=== PATIENT | male | born 1960 | race Caucasian/White ===

== ENCOUNTER → 2024-05-05 09:45 | Outpatient (REF) | payer MEDICARE, OTHER, SELFPAY ==
[2024-05-05 11:33] LABS: % Basophils 1.4 % (0-2); % Eosinophils 4.3 % (0-6); % Immature Granulocytes 0.7 % (0-0.5); % Lymphocytes 22.6 % (20.5-51.1); % Monocytes 9.8 % (1.7-9.3); % Neutrophils 61.2 % (42.2-75.2); Absolute Basophils 0.1 10^3/uL (0-0.2); Absolute Eosinophils 0.3 10^3/uL (0-0.7); Absolute Lymphocytes 1.3 10^3/uL (1.2-3.4); Absolute Monocytes 0.6 10^3/uL (0.1-0.6); Absolute Neutrophils 3.6 10^3/uL (1.4-6.5); Hematocrit 36.5 % (39.0-52.0); Hemoglobin 13.4 g/dL (13.0-18.0); Mean Corp Hgb Conc. 36.7 g/dL (33.0-37.0); Mean Corpuscular Hgb 31.8 pg (27.0-31.0); Mean Corpuscular Volume 86.5 fL (80.0-94.0); Nucleated Red Blood Cells % 0 % (-); Platelet Count 197 10^3/uL (130-400); Red Blood Cell Count 4.22 10^6/uL (4.70-6.10); Red Cell Dist. Width 12.2 % (11.5-14.5); White Blood Cell Count 5.8 10^3/uL (4.8-10.8)
[2024-05-05 12:12] LABS: ALT (SGPT) 19 U/L (0-50); AST (SGOT) 26 U/L (17-59); Albumin 4.7 g/dl (3.5-5.0); Alkaline Phosphatase 57 U/L (38-126); Blood Urea Nitrogen 19 mg/dl (9-20); Calcium 9.8 mg/dl (8.4-10.2); Carbon Dioxide 27 mmol/L (22-30); Chloride 90 mmol/L (98-107); Glucose 112 mg/dl (70-99); HDL Cholesterol 85 mg/dl; LDL Cholesterol, Calculated 56 mg/dl; Sodium 129 mmol/L (135-145); Total Bilirubin 0.6 mg/dl (0.2-1.3); Total Cholesterol 151 mg/dl (50-199); Total Protein 7.2 g/dl (6.3-8.2); Triglyceride 54 mg/dl (10-149); Uric Acid 4.5 mg/dl (3.5-8.5); Very Low Density Lipoprotein 10 mg/dl (0-30); eGFR > 60.00
== END ==
LOC: REG 09:45
PROVIDERS: ATTENDING PHYSICIAN Family Medicine
DX: Z00.00 Encounter for general adult medical examination without abnormal findings (principal); M72.0 Palmar fascial fibromatosis [Dupuytren]; I71.00 Dissection of unspecified site of aorta; Z87.39 Personal history of other diseases of the musculoskeletal system and connective tissue; I25.10 Atherosclerotic heart disease of native coronary artery without angina pectoris; M1A.00X0 Idiopathic chronic gout, unspecified site, without tophus (tophi); I11.9 Hypertensive heart disease without heart failure; M47.816 Spondylosis without myelopathy or radiculopathy, lumbar region; Z95.1 Presence of aortocoronary bypass graft; E78.2 Mixed hyperlipidemia; Z86.79 Personal history of other diseases of the circulatory system; M10.9 Gout, unspecified
CPT/HCPCS: 36415; 80053; 80061; 84550; 85025

== ENCOUNTER → 2025-04-30 11:25 | Outpatient (REF) | payer MEDICARE, OTHER, SELFPAY ==
[2025-04-30 12:08] LABS: Hematocrit 33.0 % (39.0-52.0); Hemoglobin 11.9 g/dL (13.0-18.0); Mean Corp Hgb Conc. 36.1 g/dL (33.0-37.0); Mean Corpuscular Volume 87.5 fL (80.0-94.0); Nucleated Red Blood Cells % 0 % (-); Platelet Count 163 10^3/uL (130-400); Red Cell Dist. Width 12.6 % (11.5-14.5)
[2025-04-30 13:26] LABS: Glycohemoglobin (HgbA1c) 5.3 % (4.0-5.6)
[2025-04-30 13:57] LABS: ALT (SGPT) 15 U/L (0-50); AST (SGOT) 21 U/L (17-59); Albumin 4.6 g/dl (3.5-5.0); Alkaline Phosphatase 63 U/L (38-126); Blood Urea Nitrogen 15 mg/dl (9-20); Calcium 9.7 mg/dl (8.4-10.2); Carbon Dioxide 27 mmol/L (22-30); Chloride 93 mmol/L (98-107); Glucose 103 mg/dl (70-99); HDL Cholesterol 79 mg/dl; LDL Cholesterol, Calculated 59 mg/dl; Potassium 4.1 mmol/L (3.5-5.1); Sodium 127 mmol/L (135-145); Total Protein 7.4 g/dl (6.3-8.2); Very Low Density Lipoprotein 15 mg/dl (0-30); eGFR > 60.00
== END ==
LOC: REG 11:25
PROVIDERS: ATTENDING PHYSICIAN Family Medicine
DX: M72.0 Palmar fascial fibromatosis [Dupuytren] (principal); I71.00 Dissection of unspecified site of aorta; Z00.00 Encounter for general adult medical examination without abnormal findings; I25.10 Atherosclerotic heart disease of native coronary artery without angina pectoris; I11.9 Hypertensive heart disease without heart failure; Z95.2 Presence of prosthetic heart valve; Z95.1 Presence of aortocoronary bypass graft; E78.2 Mixed hyperlipidemia; M10.9 Gout, unspecified; Z87.39 Personal history of other diseases of the musculoskeletal system and connective tissue; M1A.00X0 Idiopathic chronic gout, unspecified site, without tophus (tophi); M47.816 Spondylosis without myelopathy or radiculopathy, lumbar region; R73.09 Other abnormal glucose
CPT/HCPCS: 36415; 80053; 80061; 83036; 85025

== ENCOUNTER → 2025-07-17 09:13 | Outpatient (REF) | payer MEDICARE, OTHER, SELFPAY ==
[2025-07-17 10:36] LABS: Blood Urea Nitrogen 15 mg/dl (9-20); Calcium 9.9 mg/dl (8.4-10.2); Carbon Dioxide 27 mmol/L (22-30); Chloride 97 mmol/L (98-107); Glucose 105 mg/dl (70-99); Potassium 5.0 mmol/L (3.5-5.1); Sodium 132 mmol/L (135-145); eGFR > 60.00
== END ==
LOC: REG 09:13
PROVIDERS: ATTENDING PHYSICIAN Internal Medicine Cardiovascular Disease; FAMILY PHYSICIAN Family Medicine
DX: E87.1 Hypo-osmolality and hyponatremia (principal); I10 Essential (primary) hypertension; I25.5 Ischemic cardiomyopathy
CPT/HCPCS: 36415; 80048